=== PATIENT | female | born 1950 | race Caucasian/White ===

== ENCOUNTER 2016-11-07 22:46 | Inpatient (IN) | payer MEDICARE, MEDICAID ==
[~2016-11-07] VITALS: Ht 157.5 cm; Wt 51.3 kg
[2016-11-08] MEDS ORDERED: MORPHINE SULFATE 4 MG/ML CPJ (NOT FOR IM USE) IV STA
[2016-11-08] MEDS ORDERED: SODIUM CHLORIDE 0.9% 1,000 ML IV ONE
[2016-11-08] MEDS ORDERED: DIPHENHYDRAMINE 50MG/ML VIAL IV ONE
[2016-11-08] MEDS ORDERED: ONDANSETRON HCL 4MG/2ML VIAL IV STA
[2016-11-08 01:28] LABS: EOSINOPHILS % 1.1 % (0.0-5.0); HEMATOCRIT. 28.5 % (36.0-48.0); HEMOGLOBIN. 9.3 g/dL (12.0-16.0); LYMPHOCYTES % 11.6 % (20.0-50.0); MEAN CORPUSCULAR HEMOGLOBIN 28.7 pg (28.0-32.0); MEAN CORPUSCULAR VOLUME 88.2 fL (81.0-99.0); MEAN PLATELET VOLUME 8.1 fl (7.4-10.4); MONOCYTES % 10.6 % (2.0-8.0); NEUTROPHILS % 75.7 % (40.0-76.0); PLATELET 308 x1000/uL (130-400); RED BLOOD CELL COUNT 3.23 mill/uL (4.2-5.4)
[2016-11-08 01:34] LABS: CHLORIDE 95 mEq/L (98-107)
[2016-11-08 01:35] LABS: PROTHROMBIN TIME 10.7 sec (9.4-11.6)
[2016-11-08 01:42] LABS: CARBON DIOXIDE 35 mEq/L (21-32)
[2016-11-08 03:45] VITALS: BP_SYST 102; BP_SYST 107; BP_DIAS 72
[2016-11-08] MEDS ORDERED: LORA-250 PO (05:24)
[2016-11-08] MEDS ORDERED: IPRA0.2S51 NEB (05:24)
[2016-11-08] MEDS ORDERED: BISA-81 PO (05:24)
[2016-11-08] MEDS ORDERED: LOV40 SQ (05:24)
[2016-11-08] MEDS ORDERED: ASCO500C6 PO (05:24)
[2016-11-08] MEDS ORDERED: CLON0.1T PO (05:24)
[2016-11-08] MEDS ORDERED: ASPI-1159 PO (05:24)
[2016-11-08] MEDS ORDERED: MULT-1146 PO (05:24)
[2016-11-08] MEDS ORDERED: HALO100A IM (05:24)
[2016-11-08] MEDS ORDERED: DIPH25CA83 PO (05:24)
[2016-11-08] MEDS ORDERED: GUAI-735 PO (05:24)
[2016-11-08] MEDS ORDERED: ACET-2178 PO (05:24)
[2016-11-08] MEDS ORDERED: PANT40TA4 PO (05:24)
[2016-11-08] MEDS ORDERED: DOCU-138 PO (05:24)
[2016-11-08] MEDS ORDERED: OR220 PO (05:24)
[2016-11-08] MEDS ORDERED: QUET50TA11 PO (05:24)
[2016-11-08] MEDS ORDERED: SOD133EN RC (05:24)
[2016-11-08] MEDS ORDERED: MAGN800O PO (05:24)
[2016-11-08] MEDS ORDERED: MIDO5TAB PO (05:24)
[2016-11-08] MEDS ORDERED: ONDA4SOL2 PO (05:24)
[2016-11-08] MEDS ORDERED: TERB2.5T2 PO (05:24)
[2016-11-08] MEDS ORDERED: MEMA10TA11 PO (05:24)
[2016-11-08] MEDS ORDERED: ONDANSETRON HCL 4MG/2ML VIAL IV PRN ×3 (07:30→20:45)
[2016-11-08] MEDS ORDERED: ACETAMINOPHEN 325MG TABLET PO PRN ×3 (07:30→20:45)
[2016-11-08] MEDS ORDERED: HYDROMORPHONE HCL/PF 2MG/ML CPJ IV PRN ×2 (07:30→19:15)
[2016-11-08] MEDS ORDERED: IPRATROPIUM/ALBUTEROL 0.5-3(2.5)MG/3ML NEB INH PRN (07:30)
[2016-11-08] MEDS ORDERED: BISACODYL 5MG TABLET PO PRN (07:45)
[2016-11-08] MEDS: TERBUTALINE SULFATE 2.5MG TABLET PO SCH ×3 (07:45→22:53)
[2016-11-08] MEDS: MIDODRINE HCL 5MG TABLET PO SCH ×4 (07:45→22:53)
[2016-11-08] MEDS ORDERED: ONDANSETRON HCL 4MG TABLET PO PRN (07:45)
[2016-11-08] MEDS ORDERED: LORAZEPAM 1MG TABLET PO PRN (07:45)
[2016-11-08] MEDS ORDERED: IPRATROPIUM BROMIDE (0.02%) 0.5MG/2.5ML NEB HHN PRN (07:45)
[2016-11-08] MEDS ORDERED: DIPHENHYDRAMINE 25MG CAPSULE PO PRN (07:45)
[2016-11-08 08:49] VITALS: BP 99/58
[2016-11-08] MEDS: PANTOPRAZOLE 40MG DR TABLET PO SCH ×2 (09:00→10:38)
[2016-11-08] MEDS: MEMANTINE HCL 5MG TABLET PO SCH ×3 (09:00→22:53)
[2016-11-08] MEDS: DOCUSATE SODIUM 100MG CAPSULE PO SCH ×2 (09:00→10:34)
[2016-11-08] MEDS: QUETIAPINE FUMARATE 50MG TABLET PO SCH ×4 (09:00→17:00)
[2016-11-08] MEDS: DEXT 5%/0.9% NACL 1,000 ML IV SCH ×2 (10:34→20:00)
[2016-11-08] MEDS ORDERED: HYDROCODONE/ACETAMINOPHEN 5/325MG TABLET PO PRN (11:45)
[2016-11-08 12:30] VITALS: BP 101/50
[2016-11-08] MEDS ORDERED: GENTAMICIN SULF 40MG/ML 2ML VIAL ONE (15:37)
[2016-11-08] MEDS ORDERED: SKIN ADHESIVE 0.7 GM EA TOP ONE ×3 (15:37→20:06)
[2016-11-08] MEDS ORDERED: MORPHINE SULFATE/PF 1MG/ML 10ML AMP ONE (15:37)
[2016-11-08] MEDS ORDERED: EPINEPHRINE 1:1000 1 MG/ML AMP ONE (15:37)
[2016-11-08] MEDS ORDERED: BACITRACIN ZINC 15GM TUBE TOP ONE (15:38)
[2016-11-08] MEDS ORDERED: NORMAL SALINE 0.9% 10 ML SYR ONE (15:38)
[2016-11-08] MEDS ORDERED: BUPIVACAINE/EPINEPH/PF 0.25%/0.0005 10ML ONE ×2 (15:38→19:15)
[2016-11-08] MEDS ORDERED: BACITRACIN 50,000 UNITS/VIAL ONE (15:39)
[2016-11-08 16:26] VITALS: BP 84/39
[2016-11-08] MEDS: BUDESONIDE 0.5MG/2ML NEB HHN SCH (16:44)
[2016-11-08] MEDS: IPRATROPIUM/ALBUTEROL 0.5-3(2.5)MG/3ML NEB HHN SCH (16:45)
[2016-11-08] MEDS ORDERED: MIDAZOLAM HCL 2 MG/2 ML VIAL ONE (18:20)
[2016-11-08] MEDS ORDERED: CEFAZOLIN SODIUM 1000MG/VIAL ONE (18:25)
[2016-11-08] MEDS ORDERED: LIDOCAINE HCL 1% 20ML VIAL (Pyxis) INJ ONE (18:25)
[2016-11-08] MEDS ORDERED: FENTANYL CITRATE/PF 50MCG/ML 2ML VIAL ONE (18:25)
[2016-11-08] MEDS ORDERED: ROCURONIUM BROMIDE 10MG/ML VIAL 5ML IV ONE (18:25)
[2016-11-08] MEDS ORDERED: PROPOFOL 200MG/20ML VIAL IV ONE (18:25)
[2016-11-08] MEDS ORDERED: TRANEXAMIC ACID 1,000 MG in SODIUM CHLORIDE 0.9% 100 ML IV NR (18:30)
[2016-11-08] MEDS ORDERED: ONDANSETRON HCL 4MG/2ML VIAL ONE (18:49)
[2016-11-08] MEDS ORDERED: DEXAMETHASONE 4MG/ML 1ML VIAL ONE (18:49)
[2016-11-08] MEDS ORDERED: SODIUM CHLORIDE 0.9% 1,000 ML IV SCH (19:07)
[2016-11-08] MEDS ORDERED: GLYCOPYRROLATE 0.2 MG/ML 2ML VIAL ONE (20:00)
[2016-11-08] MEDS ORDERED: DOCUSATE SODIUM 100MG CAPSULE PO PRN (20:45)
[2016-11-08] MEDS ORDERED: MORPHINE SULFATE 4 MG/ML CPJ (NOT FOR IM USE) IV PRN (20:59)
[2016-11-08 22:20] VITALS: BP 100/55
[2016-11-08] MEDS: CEFAZOLIN 1000MG PREMIX 50 ML IV SCH (23:00)
[2016-11-09] VITALS (11 sets, daily range): BP systolic 70–93; BP diastolic 37–63
[2016-11-09] MEDS: BUDESONIDE 0.5MG/2ML NEB HHN SCH ×3 (00:04→21:35)
[2016-11-09] MEDS: IPRATROPIUM/ALBUTEROL 0.5-3(2.5)MG/3ML NEB HHN SCH ×5 (00:04→21:35)
[2016-11-09] MEDS: DEXT 5%/0.9% NACL 1,000 ML IV SCH ×2 (05:28→21:17)
[2016-11-09] MEDS: TERBUTALINE SULFATE 2.5MG TABLET PO SCH ×3 (07:01→21:16)
[2016-11-09] MEDS: MIDODRINE HCL 5MG TABLET PO SCH ×3 (07:03→21:16)
[2016-11-09] MEDS: CEFAZOLIN 1000MG PREMIX 50 ML IV SCH (07:06)
[2016-11-09 07:36] LABS: BASOPHILS % 0.3 % (0.0-2.0); HEMATOCRIT. 22.4 % (36.0-48.0); HEMOGLOBIN. 7.2 g/dL (12.0-16.0); LYMPHOCYTES % 8.5 % (20.0-50.0); MEAN CORPUSCULAR HEMOGLOBIN 28.9 pg (28.0-32.0); MEAN CORPUSCULAR VOLUME 89.8 fL (81.0-99.0); MEAN PLATELET VOLUME 9.1 fl (7.4-10.4); MONOCYTES % 14.1 % (2.0-8.0); NEUTROPHILS % 77.1 % (40.0-76.0); PLATELET 201 x1000/uL (130-400); RED CELL DISTRIBUTION WIDTH 15.1 % (11.6-14.6)
[2016-11-09 08:10] LABS: CHLORIDE 98 mEq/L (98-107)
[2016-11-09 08:32] LABS: CARBON DIOXIDE 30 mEq/L (21-32); PHOSPHORUS 2.7 mg/dL (2.5-4.9)
[2016-11-09] MEDS ORDERED: ENOXAPARIN 40MG/0.4ML SYR SUBCUT SCH (09:00)
[2016-11-09] MEDS: QUETIAPINE FUMARATE 50MG TABLET PO SCH ×3 (09:35→17:00)
[2016-11-09] MEDS: PANTOPRAZOLE 40MG DR TABLET PO SCH (09:36)
[2016-11-09] MEDS: DOCUSATE SODIUM 100MG CAPSULE PO SCH (09:36)
[2016-11-09] MEDS: MEMANTINE HCL 5MG TABLET PO SCH ×2 (09:36→21:16)
[2016-11-09] MEDS ORDERED: MAGNESIUM 2 G PREMIX 50 ML IV NR (10:00)
[2016-11-09] MEDS: HYDROCODONE/ACETAMINOPHEN 5/325MG TABLET PO PRN (21:16)
[2016-11-09 23:22] LABS: HEMATOCRIT 23.7 % (36.0-48.0); HEMOGLOBIN 7.8 g/dL (12.0-16.0)
[2016-11-10] VITALS (7 sets, daily range): BP systolic 89–106; BP diastolic 42–58
[2016-11-10] MEDS: IPRATROPIUM/ALBUTEROL 0.5-3(2.5)MG/3ML NEB HHN SCH ×4 (02:03→20:33)
[2016-11-10] MEDS: TERBUTALINE SULFATE 2.5MG TABLET PO SCH ×3 (04:55→21:04)
[2016-11-10] MEDS: HYDROCODONE/ACETAMINOPHEN 5/325MG TABLET PO PRN ×2 (04:56→21:05)
[2016-11-10] MEDS: MIDODRINE HCL 5MG TABLET PO SCH ×3 (04:56→21:04)
[2016-11-10 06:45] LABS: HEMATOCRIT. 24.3 % (36.0-48.0); HEMOGLOBIN. 7.9 g/dL (12.0-16.0); MEAN CORPUSCULAR HEMOGLOBIN 28.7 pg (28.0-32.0); MEAN CORPUSCULAR VOLUME 87.9 fL (81.0-99.0); MEAN PLATELET VOLUME 8.7 fl (7.4-10.4); PLATELET 179 x1000/uL (130-400); RED BLOOD CELL COUNT 2.76 mill/uL (4.2-5.4); RED CELL DISTRIBUTION WIDTH 15.8 % (11.6-14.6)
[2016-11-10 07:03] LABS: CARBON DIOXIDE 33 mEq/L (21-32); CHLORIDE 100 mEq/L (98-107); TOTAL IRON BINDING CAPACITY 284 ug/dL (250-450)
[2016-11-10] MEDS: BUDESONIDE 0.5MG/2ML NEB HHN SCH ×2 (08:10→20:33)
[2016-11-10] MEDS: DOCUSATE SODIUM 100MG CAPSULE PO SCH (09:12)
[2016-11-10] MEDS: PANTOPRAZOLE 40MG DR TABLET PO SCH (09:12)
[2016-11-10] MEDS: QUETIAPINE FUMARATE 50MG TABLET PO SCH ×3 (09:12→17:37)
[2016-11-10] MEDS: MEMANTINE HCL 5MG TABLET PO SCH ×2 (09:12→21:04)
[2016-11-10] MEDS: DEXT 5%/0.9% NACL 1,000 ML IV SCH (10:39)
[2016-11-10 10:40] LABS: PLATELET ESTIMATE NORMAL
[2016-11-10] MEDS: FERROUS SULFATE 325MG TABLET PO SCH (17:37)
[2016-11-11] VITALS (7 sets, daily range): BP systolic 88–136; BP diastolic 46–85
[2016-11-11] MEDS: IPRATROPIUM/ALBUTEROL 0.5-3(2.5)MG/3ML NEB HHN SCH ×3 (02:02→13:31)
[2016-11-11] MEDS: TERBUTALINE SULFATE 2.5MG TABLET PO SCH ×2 (06:04→14:18)
[2016-11-11] MEDS: MIDODRINE HCL 5MG TABLET PO SCH ×2 (06:04→14:18)
[2016-11-11] MEDS: BUDESONIDE 0.5MG/2ML NEB HHN SCH (08:41)
[2016-11-11] MEDS: DOCUSATE SODIUM 100MG CAPSULE PO SCH (09:00)
[2016-11-11] MEDS: FERROUS SULFATE 325MG TABLET PO SCH ×3 (09:00→17:19)
[2016-11-11] MEDS: QUETIAPINE FUMARATE 50MG TABLET PO SCH ×3 (09:01→17:19)
[2016-11-11] MEDS: MEMANTINE HCL 5MG TABLET PO SCH (09:01)
[2016-11-11] MEDS: PANTOPRAZOLE 40MG DR TABLET PO SCH (09:01)
[2016-11-11 09:13] LABS: BASOPHILS % 0.9 % (0.0-2.0); EOSINOPHILS % 3.1 % (0.0-5.0); HEMATOCRIT. 26.9 % (36.0-48.0); HEMOGLOBIN. 8.9 g/dL (12.0-16.0); LYMPHOCYTES % 13.7 % (20.0-50.0); MEAN CORPUSCULAR HEMOGLOBIN 28.8 pg (28.0-32.0); MEAN CORPUSCULAR VOLUME 87.3 fL (81.0-99.0); MEAN PLATELET VOLUME 9.1 fl (7.4-10.4); MONOCYTES % 13.1 % (2.0-8.0); NEUTROPHILS % 69.2 % (40.0-76.0); PLATELET 216 x1000/uL (130-400); RED BLOOD CELL COUNT 3.08 mill/uL (4.2-5.4); RED CELL DISTRIBUTION WIDTH 15.3 % (11.6-14.6)
[2016-11-11 09:33] LABS: CARBON DIOXIDE 37 mEq/L (21-32); CHLORIDE 95 mEq/L (98-107); PHOSPHORUS 2.4 mg/dL (2.5-4.9)
[2016-11-11] MEDS ORDERED: KCL 20MEQ/100ML PREMIX 100 ML IV NR ×2 (13:00→21:00)
[2016-11-11] MEDS ORDERED: CEFEPIME 1,000 MG in DEXTROSE 5% WATER 50 ML IV SCH (14:00)
[2016-11-11] MEDS ORDERED: POTASSIUM PHOS,M-BASIC-D-BASIC 10 MMOL in DEXT 5% WATER 246.6667 ML IV NR (15:00)
[2016-11-11] MEDS ORDERED: MAGNESIUM 2 G PREMIX 50 ML IV NR (15:00)
[2016-11-11] MEDS ORDERED: HALOPERIDOL LACTATE 5MG/ML VIAL IM PRN (16:00)
== END 2016-11-11 18:45 | DRG 480 ==
LOC: ER 23:08 → 5WST 11-08 02:06 → EDBEDREQ 11-08 02:10 → ENRESERV 11-08 03:04 → 5WST 11-09 19:11
PROVIDERS: ADMIT Internal Medicine; ATTEND Internal Medicine
PROC: 0QS606Z Reposition Right Upper Femur with Intramedullary Internal Fixation Device, Open Approach (ICD-10-PCS; principal; 2016-11-08 16:00)
DX: S72.141A Displaced intertrochanteric fracture of right femur, initial encounter for closed fracture (principal); J96.01 Acute respiratory failure with hypoxia; G93.40 Encephalopathy, unspecified; E43 Unspecified severe protein-calorie malnutrition; J18.9 Pneumonia, unspecified organism; I95.89 Other hypotension; F03.90 Unspecified dementia, unspecified severity, without behavioral disturbance, psychotic disturbance, mood disturbance, and anxiety; F03.91 Unspecified dementia, unspecified severity, with behavioral disturbance; I11.9 Hypertensive heart disease without heart failure; R47.01 Aphasia; F20.0 Paranoid schizophrenia; J44.1 Chronic obstructive pulmonary disease with (acute) exacerbation; N39.0 Urinary tract infection, site not specified; E83.42 Hypomagnesemia; D50.9 Iron deficiency anemia, unspecified; E11.9 Type 2 diabetes mellitus without complications; J44.9 Chronic obstructive pulmonary disease, unspecified; D63.8 Anemia in other chronic diseases classified elsewhere; W18.30XA Fall on same level, unspecified, initial encounter; E87.6 Hypokalemia; E83.39 Other disorders of phosphorus metabolism; F10.10 Alcohol abuse, uncomplicated; K21.9 Gastro-esophageal reflux disease without esophagitis; Z79.899 Other long term (current) drug therapy; Z86.711 Personal history of pulmonary embolism; Z86.718 Personal history of other venous thrombosis and embolism; Z87.440 Personal history of urinary (tract) infections; Z96.641 Presence of right artificial hip joint; F41.9 Anxiety disorder, unspecified; J06.9 Acute upper respiratory infection, unspecified; Z88.2 Allergy status to sulfonamides; Z88.8 Allergy status to other drugs, medicaments and biological substances; Y93.89 Activity, other specified; Y99.8 Other external cause status; Z68.20 Body mass index [BMI] 20.0-20.9, adult; Y92.129 Unspecified place in nursing home as the place of occurrence of the external cause; Z91.19 Patient's noncompliance with other medical treatment and regimen
CPT/HCPCS: 36415; 71010; 73502; 73552; 74000; 80048; 80053; 83540; 83550; 83735; 84100; 85014; 85018; 85025; 85610; 86850; 86900; 86920; 93005; 93308; 93970; 94640; 94664; 96361; 96374; 96375; 99285; A4216; C1713; C1893; J0171; J0690; J0692; J1100; J1200; J1580; J1630; J1650; J2250; J2270; J2274; J2405; J2704; J3010; J3475; J3480; J3490; J7030; J7042; J7050; J7060; J7120; J7620; J7626; P9016

== ENCOUNTER 2018-02-10 11:15 | Inpatient (IN) | payer MEDICARE, MEDICAID ==
[~2018-02-10] VITALS: Ht 160 cm; Wt 38.6 kg
[~2018-02-10 11:15] MED LIST: ACET-2178 PO; ASCO500C6 PO; BISA-81 PO; CLON0.1T PO; DIPH25CA83 PO; DOCU-138 PO; GUAI-735 PO; HALO100A IM; IPRA0.2S51 NEB; LORA-250 PO; MAGN800O PO; MEMA10TA2 PO; MIDO5TAB PO; MULT-1146 PO; ONDA4SOL2 PO; OR220 PO; PANT40TA4 PO; QUET50TA PO; SOD133EN RC; TERB2.5T2 PO
[2018-02-10] MEDS ORDERED: SODIUM CHLORIDE 0.9% 1,000 ML IV ONE (11:27)
[2018-02-10] MEDS ORDERED: ALBUTEROL (0.083%) 2.5MG/3ML NEB HHN ONE (11:45)
[2018-02-10 12:15] LABS: HEMATOCRIT. 34.8 % (36.0-48.0); HEMOGLOBIN. 11.1 g/dL (12.0-16.0); MEAN CORPUSCULAR HEMOGLOBIN 30.3 pg (28.0-32.0); MEAN CORPUSCULAR VOLUME 94.8 fL (81.0-99.0); MEAN PLATELET VOLUME 7.7 fl (7.4-10.4); PLATELET 247 x1000/uL (130-400); RED BLOOD CELL COUNT 3.67 mill/uL (4.2-5.4); RED CELL DISTRIBUTION WIDTH 14.8 % (11.6-14.6)
[2018-02-10 12:19] LABS: CHLORIDE 84 mEq/L (98-107)
[2018-02-10 12:41] LABS: PLATELET ESTIMATE NORMAL
[2018-02-10] MEDS ORDERED: SODIUM CHLORIDE 0.9% 1,000 ML IV SCH (15:43)
[2018-02-10] MEDS ORDERED: ACETAMINOPHEN 650MG SUPP PR PRN (15:45)
[2018-02-10] MEDS ORDERED: LORAZEPAM 2MG/ML CPJ IV PRN (15:45)
[2018-02-10] MEDS ORDERED: ONDANSETRON HCL 4MG/2ML INJ IV PRN (15:45)
[2018-02-10] MEDS ORDERED: IPRATROPIUM/ALBUTEROL 0.5-3(2.5)MG/3ML NEB HHN SCH (15:45)
[2018-02-10] MEDS ORDERED: IPRATROPIUM/ALBUTEROL 0.5-3(2.5)MG/3ML NEB HHN PRN (16:00)
[2018-02-10] MEDS: IPRATROPIUM/ALBUTEROL 0.5-3(2.5)MG/3ML NEB HHN SCH (16:30)
[2018-02-10] MEDS ORDERED: ALBUTEROL (0.083%) 2.5MG/3ML NEB ONE (16:48)
[2018-02-10] MEDS: DEXT 5%/0.9% NACL 1,000 ML IV SCH (21:23)
[2018-02-10 22:00] VITALS: BP 95/56
[2018-02-11] VITALS (7 sets, daily range): BP systolic 65–100; BP diastolic 29–56
[2018-02-11] MEDS ORDERED: SODIUM CHLORIDE 0.9% FOR INH 3ML VIAL NEB INH NR
[2018-02-11] MEDS ORDERED: VANCOMYCIN 750 MG PREMIX 150 ML IV NR (01:00)
[2018-02-11] MEDS: ACETYLCYSTEINE 100MG/ML 10% VIAL 4ML INH SCH ×2 (01:13→08:24)
[2018-02-11] MEDS: IPRATROPIUM/ALBUTEROL 0.5-3(2.5)MG/3ML NEB HHN SCH ×6 (01:13→21:05)
[2018-02-11 06:26] LABS: HEMATOCRIT. 31.9 % (36.0-48.0); HEMOGLOBIN. 10.5 g/dL (12.0-16.0); MEAN CORPUSCULAR HEMOGLOBIN 30.9 pg (28.0-32.0); MEAN CORPUSCULAR VOLUME 94.1 fL (81.0-99.0); MEAN PLATELET VOLUME 7.9 fl (7.4-10.4); PLATELET 293 x1000/uL (130-400); RED BLOOD CELL COUNT 3.39 mill/uL (4.2-5.4); RED CELL DISTRIBUTION WIDTH 14.2 % (11.6-14.6)
[2018-02-11 06:41] LABS: CHLORIDE 87 mEq/L (98-107)
[2018-02-11 09:26] LABS: INR 1.3; PROTHROMBIN TIME 13.4 sec (9.1-11.1)
[2018-02-11] MEDS ORDERED: VANCOMYCIN 500 MG PREMIX 100 ML IV SCH (12:00)
[2018-02-11] MEDS ORDERED: VANCOMYCIN 750 MG PREMIX 150 ML IV SCH (13:00)
[2018-02-11 13:06] LABS: PLATELET ESTIMATE NORMAL
[2018-02-11] MEDS: DEXT 5%/0.9% NACL 1,000 ML IV SCH (14:17)
[2018-02-11] MEDS ORDERED: LORAZEPAM 2MG/ML CPJ IV PRN (14:45)
[2018-02-11] MEDS ORDERED: MORPHINE SULFATE 4 MG/ML CPJ (NOT FOR IM USE) IV PRN (14:50)
[2018-02-12] MEDS: IPRATROPIUM/ALBUTEROL 0.5-3(2.5)MG/3ML NEB HHN SCH (00:10)
== END 2018-02-12 00:35 | disposition expired | DRG 177 ==
LOC: ER 11:38 → 6EST 14:09 → ENRESERV 19:26
PROVIDERS: ADMIT Internal Medicine; ATTEND Internal Medicine
DX: J69.0 Pneumonitis due to inhalation of food and vomit (principal); J96.21 Acute and chronic respiratory failure with hypoxia; J90 Pleural effusion, not elsewhere classified; D64.9 Anemia, unspecified; E11.9 Type 2 diabetes mellitus without complications; E86.0 Dehydration; F03.90 Unspecified dementia, unspecified severity, without behavioral disturbance, psychotic disturbance, mood disturbance, and anxiety; F20.9 Schizophrenia, unspecified; I10 Essential (primary) hypertension; I25.10 Atherosclerotic heart disease of native coronary artery without angina pectoris; I48.91 Unspecified atrial fibrillation; J44.9 Chronic obstructive pulmonary disease, unspecified; M19.90 Unspecified osteoarthritis, unspecified site; Z51.5 Encounter for palliative care; Z66 Do not resuscitate; Z82.49 Family history of ischemic heart disease and other diseases of the circulatory system; Z86.711 Personal history of pulmonary embolism; Z86.718 Personal history of other venous thrombosis and embolism; Z87.891 Personal history of nicotine dependence; Z91.19 Patient's noncompliance with other medical treatment and regimen; Z88.6 Allergy status to analgesic agent; Z88.2 Allergy status to sulfonamides; Z88.8 Allergy status to other drugs, medicaments and biological substances; Z79.899 Other long term (current) drug therapy
CPT/HCPCS: 36415; 71045; 76604; 80048; 82962; 93005; 94640; 94667; 96360; 96361; 97161; 99291; J3370; J7030; J7040; J7042; J7608; J7611; J7620